=== PATIENT | male | born 1975 | race Caucasian/White ===

== ENCOUNTER 2017-05-14 18:46 | Emergency (ER) | payer BC ==
[2017-05-14] MEDS ORDERED: Aspirin 81 MG Tab.Chew PO ONE (20:06)
[2017-05-14] MEDS ORDERED: Sodium Chloride 0.9% 10 ML Syringe FLUSH PRN (20:06)
[2017-05-14] MEDS ORDERED: HYDROmorphone 0.5 MG/0.5 ML SYRINGE IVPUSH ONE (20:11)
--- NOTE | 2017-05-14 21:33 | EDM.PDOC ---
ED HPI GENERAL MEDICAL PROBLEM - General Chief Complaint: Chest Pain Stated Complaint: CHEST PAIN Time Seen by Provider: 05/14/17 19:50 Source of Information: Reports: Patient History Limitations: Reports: No Limitations - History of Present Illness INITIAL COMMENTS - FREE TEXT/NARRATIVE: 40-year-old male presents for evaluation treatment of chest pain. Patient reports the chest pain is located in the center of his chest. Started around 1500 today. He describes as squeezing, tightness. Rates the pain as a 4 out of 10. He denies any associated nausea, vomiting, diaphoresis, lightheadedness, dizziness, syncope or any shortness of breath. He denies any recent cough or cold symptoms. Patient reports about 3 weeks he pulled his shoulder while he was sleeping. He states he is now experiencing pain in his shoulder, back and neck. This is been going on for the last 3 weeks. He did see his primary care provider started him on some muscle relaxers. For the last 3 days his pain seems to be worsening. No cardiac history. He had any arrhythmias were MIs. He does have a history of hypertension and is a type II diabetic. Reports his sugars have been running 160s. Primary care provide is Katie Murphy. Onset: Today Location: Reports: Chest Chest Pain Score (Numeric/FACES): 4 - Related Data Allergies Allergy/AdvReac Type Severity Reaction Status Date / Time No Known Allergies Allergy Verified 05/14/17 18:55 Home Meds: Home Meds Acetaminophen/oxyCODONE [Percocet 325-5 MG] 1 tab PO Q6HR PRN #10 tab 05/14/17 [ Rx] Lisinopril [Prinivil] 5 mg PO DAILY 05/14/17 [History] Meloxicam 15 mg PO DAILY 05/14/17 [History] Orphenadrine [Norflex] 100 mg PO BID 05/14/17 [History] glipiZIDE [Glucotrol XL] 5 mg PO BRK 05/14/17 [History] metFORMIN HCl [Glucophage] 1,000 mg PO BID 05/14/17 [History] Past Medical History - Past Health History Medical/Surgical History: Denies Medical/Surgical History Cardiovascular History: Reports: Hypertension Respiratory History: Reports: Croup Social & Family History - Family History Cardiac: Reports: CAD Respiratory: Reports: COPD GI: Reports: Cirrhosis, Diverticulosis, Jaundice : Reports: Renal Disease/Insufficiency Endocrine/Metabolic: Reports: Diabetes, type II - Tobacco Use Smoking Status *Q: Never Smoker - Caffeine Use Caffeine Use: Reports: Coffee - Recreational Drug Use Recreational Drug Use: No ED ROS GENERAL - Review of Systems Review Of Systems: See Below Constitutional: Denies: Fever, Chills, Diaphoresis HEENT: Denies: Ear Pain Respiratory: Denies: Shortness of Breath Cardiovascular: Reports: Chest Pain (central). Denies: Lightheadedness, Syncope GI/Abdominal: Denies: Abdominal Pain, Nausea, Vomiting Musculoskeletal: Reports: Neck Pain, Shoulder Pain, Back Pain Neurological: Denies: Dizziness, Syncope ED EXAM, GENERAL - Physical Exam Exam: See Below Exam Limited By: No Limitations General Appearance: Alert, WD/WN, No Apparent Distress, Obese Eye Exam: Bilateral Eye: Normal Inspection Ears: Normal External Exam Nose: Normal Inspection Throat/Mouth: Normal Inspection, Normal Lips, Normal Voice, No Airway Compromise Neck: Normal Inspection Respiratory/Chest: No Respiratory Distress, Lungs Clear, Normal Breath Sounds Cardiovascular: Normal Peripheral Pulses, Regular Rate, Rhythm, No Edema, No Murmur Peripheral Pulses: 2+: Radial (L), Radial (R) GI/Abdominal: Normal Bowel Sounds, Soft, Non-Tender Extremities: Normal Inspection Neurological: Alert, Oriented, Normal Cognition Psychiatric: Normal Affect, Normal Mood Skin Exam: Warm, Dry, Normal Color EKG INTERPRETATION EKG Date: 05/14/17 Time: 18:50 Rhythm: NSR Rate (Beats/Min): 86 [place]: Normal P-Wave: Present QRS: Normal ST-T: Normal QT: Normal EKG Interpretation Comments: NSR at 86 bpm. initial poor "r" wave progression. Near Q waves III and AVF - consider old inferior wall RI. Mild LAD (-9 degrees) Reviewed by myself and Dr. Romano. Course - Vital Signs Last Recorded V/S: Last Vital Signs Temp 36.8 C 05/14/17 19:02 Pulse 89 05/14/17 19:02 Resp 16 05/14/17 19:02 BP 176/93 H 05/14/17 19:02 Pulse Ox 98 05/14/17 19:02 - Orders/Labs/Meds Labs: Laboratory Tests 05/14/17 05/14/17 05/14/17 Range/Units 18:55 18:55 18:55 WBC 10.06 H (4.23-9.07) K/mm3 RBC 5.19 (4.63-6.08) M/mm3 Hgb 14.9 (13.7-17.5) gm/L Hct 42.5 (40.1-51.0) % MCV 81.9 (79.0-92.2) fl MCH 28.7 (25.7-32.2) pg MCHC 35.1 (32.2-35.5) g/dl RDW Std Deviation 42.3 (35.1-43.9) fL Plt Count 197 (163-337) K/mm3 MPV 11.4 (9.4-12.3) fl Neut % (Auto) 55.4 (34.0-67.9) % Lymph % (Auto) 33.6 (21.8-53.1) % [place] % (Auto) 6.3 (5.3-12.2) % Eos % (Auto) 3.8 (0.8-7.0) Baso % (Auto) 0.4 (0.1-1.2) % Neut # (Auto) 5.58 H (1.78-5.38) K/mm3 Lymph # (Auto) 3.38 (1.32-3.57) K/mm3 [place] # (Auto) 0.63 (0.30-0.82) K/mm3 Eos # (Auto) 0.38 (0.04-0.54) K/mm3 Baso # (Auto) 0.04 (0.01-0.08) K/mm3 PT 11.2 (8.0-13.0) SECONDS INR 1.05 APTT 27 (22-36) SECONDS Sodium 139 (136-145) mEq/L Potassium 3.9 (3.5-5.1) mEq/L Chloride 102 (98-107) mEq/L Carbon Dioxide 27 (21-32) mEq/L Anion Gap 13.9 (5-15) BUN 17 (7-18) mg/dL Creatinine 1.2 (0.7-1.3) mg/dL Est Cr Clr Drug Dosing 74.21 mL/min Estimated GFR (MDRD) > 60 (>60) mL/min BUN/Creatinine Ratio 14.2 (14-18) Glucose 196 H (74-106) mg/dL Calcium 9.1 (8.5-10.1) mg/dL Total Bilirubin 0.6 (0.2-1.0) mg/dL AST 34 (15-37) U/L ALT 81 H (16-63) U/L Alkaline Phosphatase 87 (46-116) U/L Troponin I < 0.017 (0.00-0.056) ng/mL Total Protein 8.0 (6.4-8.2) g/dl Albumin 4.2 (3.4-5.0) g/dl Globulin 3.8 gm/dL Albumin/Globulin Ratio 1.1 (1-2) Lipase 134 (73-393) U/L //18 Range/Units 22:10 WBC (4.23-9.07) K/mm3 RBC (4.63-6.08) M/mm3 Hgb (13.7-17.5) gm/L Hct (40.1-51.0) % MCV (79.0-92.2) fl MCH (25.7-32.2) pg MCHC (32.2-35.5) g/dl RDW Std Deviation (35.1-43.9) fL Plt Count (163-337) K/mm3 MPV (9.4-12.3) fl Neut % (Auto) (34.0-67.9) % Lymph % (Auto) (21.8-53.1) % [place] % (Auto) (5.3-12.2) % Eos % (Auto) (0.8-7.0) Baso % (Auto) (0.1-1.2) % Neut # (Auto) (1.78-5.38) K/mm3 Lymph # (Auto) (1.32-3.57) K/mm3 [place] # (Auto) (0.30-0.82) K/mm3 Eos # (Auto) (0.04-0.54) K/mm3 Baso # (Auto) (0.01-0.08) K/mm3 PT (8.0-13.0) SECONDS INR APTT (22-36) SECONDS Sodium (136-145) mEq/L Potassium (3.5-5.1) mEq/L Chloride (98-107) mEq/L Carbon Dioxide (21-32) mEq/L Anion Gap (5-15) BUN (7-18) mg/dL Creatinine (0.7-1.3) mg/dL Est Cr Clr Drug Dosing mL/min Estimated GFR (MDRD) (>60) mL/min BUN/Creatinine Ratio (14-18) Glucose (74-106) mg/dL Calcium (8.5-10.1) mg/dL Total Bilirubin (0.2-1.0) mg/dL AST (15-37) U/L ALT (16-63) U/L Alkaline Phosphatase (46-116) U/L Troponin I < 0.017 (0.00-0.056) ng/mL Total Protein (6.4-8.2) g/dl Albumin (3.4-5.0) g/dl Globulin gm/dL Albumin/Globulin Ratio (1-2) Lipase (73-393) U/L Meds: Medications Discontinued Medications Generic Name Dose Route Start Last Admin Trade Name Freq PRN Reason Stop Dose Admin Aspirin 324 mg 05/14/17 20:06 05/14/17 20:20 Aspirin PO 05/14/17 20:07 324 mg ONETIME ONE Administration Hydromorphone HCl 0.5 mg 05/14/17 20:11 05/14/17 20:20 Dilaudid IVPUSH 05/14/17 20:12 0.5 mg ONETIME ONE Administration Sodium Chloride 10 ml 05/14/17 20:06 05/14/17 20:20 Saline Flush FLUSH 10 ml ASDIRECTED PRN Administration Keep Vein Open - Radiology Interpretation Free Text/Narrative:: chest xray shows no acute intrathoracic process - Re-Assessments/Exams Free Text/Narrative Re-Assessment/Exam: 05/14/17 22:06 I reviewed the labs and imaging with the patient. He was offered pain medication initially upon arrival for his chest pain. He said he would like some pain medication not as much for his chest but more for his shoulders, neck and back. He is currently pain-free at this time. Plan will be to repeat the troponin and will likely send home if it is negative. 05/14/17 22:49 repeat trop returned negative Patient has been using muscle relaxers which has not given him much relief. Is also been using an NSAID prescribed for his primary care provider without any relief. I will give him a few pain pills to help him sleep the shoulder, neck and back pain. We discussed physical therapy. I do feel this would likely be a good next step if he continues to have discomfort. I feel his chest pain today is likely a result of his shoulder, neck and back pain. Encouraged follow-up with his primary. will discharge home at this time. Departure - Departure Time of Disposition: 22:51 Disposition: Home, Self-Care 01 Condition: Fair Clinical Impression: Chest wall pain Prescriptions: Acetaminophen/oxyCODONE [Percocet 325-5 MG] 1 tab PO Q6HR PRN #10 tab PRN Reason: Pain Instructions: Chest Wall Pain Referrals: Loren Murphy NP [Primary Care Provider] - Forms: ED Department Discharge Additional Instructions: You were given medication the other can affect your ability to drive and operate machinery. Do not drive or operate machinery within 12 hours of taking prescription narcotic pain medication. follow-up with your PCP in 1-2 weeks for a recheck Continue with your current plan of care for your shoulders and back. May take Percocet 1 tab every 6 hours as needed for severe pain not relieved by over-the- counter Tylenol or Motrin. Percocet is habit-forming, take as few of these as needed to control your pain. Do not drive or operate machinery within 12 hours taking Percocet. Consider seen physical therapy for further care of your shoulders and back. I feel this is likely causing some ear discomfort into her chest today. Please return to the ER for symptoms change or worsen.
--- NOTE | 2017-05-15 09:34 | CR ---
Chest: Frontal view of the chest was obtained utilizing portable technique. Heart size and mediastinum are normal. Lungs are clear. Bony structures are grossly intact. Impression: 1. Nothing acute is identified on portable chest x-ray. Diagnostic code #1
== END 2017-05-14 23:10 | disposition home or self-care (01) ==
LOC: JD.ED 18:46
DX: R07.89 Other chest pain (principal); I10 Essential (primary) hypertension; Z79.899 Other long term (current) drug therapy
CPT/HCPCS: 36415; 71045; 80053; 83690; 84484; 85025; 85610; 85730; 93005; 99285; A9270; J1170; J7050; 93010; 99284